=== PATIENT | female | born 1975 | race Caucasian/White ===

== ENCOUNTER → 2017-06-12 | Outpatient (CLI) | payer BC ==
[~2017-06-12] MED LIST: ASPIR-LOW81 MG PO; PRENATAL VITAMI1 TA5 PO
== END ==
LOC: MC.RAD 15:00
DX: Z12.31 Encounter for screening mammogram for malignant neoplasm of breast (principal)

== ENCOUNTER → 2018-08-31 | Outpatient (CLI) | payer BC | LOC: MC.RAD 08:30 | DX: N64.4 Mastodynia (principal) | CPT/HCPCS: G0279 ==

== ENCOUNTER → 2021-01-18 | Outpatient (CLI) | payer BC | LOC: MC.RAD 09:15 | DX: Z12.31 Encounter for screening mammogram for malignant neoplasm of breast (principal); R92.0 Mammographic microcalcification found on diagnostic imaging of breast ==

== ENCOUNTER → 2021-01-24 | Outpatient (CLI) | payer BC | LOC: MC.RAD 13:55 | DX: R92.0 Mammographic microcalcification found on diagnostic imaging of breast (principal) ==

== ENCOUNTER → 2021-01-31 | Outpatient (CLI) | payer BC | LOC: MC.RAD 08:30 | DX: R92.0 Mammographic microcalcification found on diagnostic imaging of breast (principal) ==

== ENCOUNTER → 2022-05-30 | Day surgery (SDC) | payer BC ==
[~2022-05-30] VITALS: Ht 165.1 cm; Wt 55.9 kg
[~2022-05-30] MED LIST changes: +COMPLETE MULTI1 TAB PO
[2022-05-30 07:42] VITALS: BP 123/97; PULSE 88; TEMP 98.2
[2022-05-30 09:35] VITALS: BP 110/81; PULSE 82
--- NOTE | 2022-05-30 09:35 | NUR ---
0935 PATIENT TO RECOVERY BAY 1 POST PROCEDURE VIA CART. PAT AMBULATORY WITH ASSIST TO CHAIR. MADE COMFORTABLE IN CHAIR AND WARM BLANKETS GIVEN. VITAL SIGNS TAKEN AND WNL. NO COMPLAINTS OF NAUSEA. GIVEN WATER AND CRACKERS TO EAT.
[2022-05-30 09:50] VITALS: BP 116/92; PULSE 63
[2022-05-30 10:05] VITALS: BP 107/74; PULSE 71
--- NOTE | 2022-05-30 10:18 | NUR ---
1015 IV TO LEFT HAND DISCONTINUED. IV SITE WITHOUT SWELLING OR REDNESS. SECURED WITH COTTON AND COBAN.
--- NOTE | 2022-05-30 11:25 | NUR ---
PATIENT DISMISSED VIA WHEELCHAIR ACCOMPANIED BY ROOSEVELT IZAGUIRRE. FRIEND HERE FOR RIDE.
--- NOTE | 2022-05-30 11:30 | NUR ---
1120 PATIENT GIVEN DICHARGE INSTRUCTIONS AND GIVES VERBAL UNDERSTANDING. PATIENT SIGNS ACKNOWLEDEMENT OF INSTRUCTIONS.
== END ==
LOC: SDCO 07:25
DX: Z12.11 Encounter for screening for malignant neoplasm of colon (principal); Z79.82 Long term (current) use of aspirin
CPT/HCPCS: J2704; J7120